=== PATIENT | male | born 2000 | race Caucasian/White ===

== ENCOUNTER 2023-10-18 16:23 | Emergency (ER) | payer BC ==
[~2023-10-18] VITALS: Ht 182.9 cm; Wt 77.1 kg
[2023-10-18 16:32] VITALS: BP 135/79; TEMP 98.2
[2023-10-18 18:54] VITALS: O2SAT 99
== END 2023-10-18 18:55 | disposition home or self-care (01) ==
LOC: ER 16:23
DX: S62.391A Other fracture of second metacarpal bone, left hand, initial encounter for closed fracture (principal); Z88.1 Allergy status to other antibiotic agents; W18.39XA Other fall on same level, initial encounter; Y93.89 Activity, other specified; Y92.89 Other specified places as the place of occurrence of the external cause; Y99.8 Other external cause status
CPT/HCPCS: 73130-TC